=== PATIENT | female | born 1935 | race Caucasian/White ===

== ENCOUNTER → 2016-12-22 | Outpatient (CLI) | payer MEDICARE, MEDICAID ==
[~2016-12-22] MED LIST: ACHD5005 PO; ALBU0.8322 IH; AMOX500C2 PO; Aspirin PO; Atorvastatin Calcium PO; CARV25TA PO; CATHETER FLUSH 10 ML SYR IV PRN; CLAR-19 PO; CLPD75T PO; DILT120C82 PO; EXEN10PE4 SQ; GLIP5TAB13 PO; HYDR-3812 PO; HYDR25TA4 PO; IBUP-1773 PO; IOHEXOL 350 MG/ML 100 ML (OMNIPAQUE 350) VIAL IV ONE; LANS30CA PO; LISI40TA PO; LNS30CCR PO; LOVA40TA2 PO; MAGN400C PO; MAGN400T6 PO; METF-380 PO; METF1000 PO; NS 100 ML (IVPB) BAG IV ONE; PRD20T PO; TRAM50TA2 PO; VIT1TABL83 PO; WARF5TAB6 PO; WRF5T PO
[2016-12-22 08:52] LABS: CREATININE SERUM 1.2 MG/DL (0.60-1.30)
--- NOTE | 2016-12-22 09:57 | Diagnostic Imaging Report ---
PROCEDURE: CT abdomen with contrast only. TECHNIQUE: Multiple contiguous axial images were obtained through the abdomen after the administration of intravenous contrast. INDICATION: Followup renal mass. COMPARISON: 07/01/2016. FINDINGS: The lung bases demonstrate no significant abnormality. Calcified granulomas in the liver are seen with no focal lesion. The spleen, the adrenal glands and the pancreas appear unremarkable. The kidneys have symmetric enhancement and contrast excretion. There is no hydronephrosis. There is a 2.1 cm hypodense lesion along the lower pole of the right kidney. No definite contrast enhancement in it is demonstrated. The osseous structures demonstrate mild degenerative changes. Abdominal aorta is normal in caliber. No para-aortic significantly enlarged lymph nodes seen. IMPRESSION: Stable 2.1 cm hypodense lesion along the lower pole of the right kidney is probably a complicated cyst with no definite enhancing components. Ultrasound evaluation may help confirm the cystic nature. Dictated by: Dictated on workstation # [id number]
== END ==
LOC: RAD 08:21
PROVIDERS: ATTEND Nurse Practitioner Community Health
DX: N28.89 Other specified disorders of kidney and ureter (principal)
CPT/HCPCS: 36415; 74160; 82565; 84520

== ENCOUNTER 2017-03-27 13:58 | Inpatient (IN) | payer MEDICARE, MEDICAID ==
[~2017-03-27] VITALS: Ht 165.1 cm; Wt 100.3 kg
[~2017-03-27 13:58] MED LIST changes: -CATHETER FLUSH 10 ML SYR IV PRN; -IOHEXOL 350 MG/ML 100 ML (OMNIPAQUE 350) VIAL IV ONE; -NS 100 ML (IVPB) BAG IV ONE
--- NOTE | 2017-03-27 14:03 | ED Neurological Problem ---
General Stated Complaint: POSS STROKE Source: patient, EMS Exam Limitations: clinical condition History of Present Illness Time seen by provider: 14:02 Initial Comments 81-year-old white female presents with EMS with a strokelike presentation that began by best history between 1 and 2+ hours prior to presentation to the emergency department. The patient's family noted weakness in the left arm and leg leading to the patient falling sustaining blunt head trauma to the left temporal area. The patient according to the family had slurred speech. The patient is on Coumadin and aspirin. She is diabetic. Her blood pressure in the emergency department exceeded 185/110. The TPA conversation was undertaken with the patient and her children. Her son is a nurse and has DURABLE POWER OF FILTER TANK OPERATOR for the patient. Despite the fact that the patient has a number of precautions for the use of TPA she has absolutely clear that she wants to try the TPA. The patient's son and 2 daughters are in agreement. . . Allergies and Home Medications Allergies Coded Allergies: No Known Drug Allergies (Verified , 08/08/07) Home Medications Albuterol Sulfate 1 Puff Puff, 2 PUFF IH Q4H PRN for SHORTNESS OF BREATH, ( Reported) 1 PUFF = 90 MCG Aspirin 325 Mg Tablet, 650 MG PO DAILY, (Reported) Carvedilol 25 Mg Tablet, 25 MG PO BID, (Reported) Glipizide 5 Mg Tablet, 5 MG PO DAILY, (Reported) Lisinopril 40 Mg Tablet, 40 MG PO DAILY, (Reported) Metformin HCl 1,000 Mg Tablet, 1,000 MG PO BID, (Reported) Warfarin Sodium 2.5 Mg Tablet, 2.5 MG PO DAILY, (Reported) Constitutional: No chills, No fever Eyes: See HPI, Denies Blurred Vision Ears, Nose, Mouth, Throat: denies ear pain Respiratory: No cough Cardiovascular: No chest pain Gastrointestinal: No abdominal pain, No nausea Genitourinary: no symptoms reported Musculoskeletal: no symptoms reported Skin: no symptoms reported Psychiatric/Neurological: No Symptoms Reported, Weakness (left arm and leg which is new. Weakness the left face which is old from Lyme's disease.) Endocrine: No Symptoms Reported Hematologic/Lymphatic: No Symptoms Reported Past Lrycwhl-Dkeapn-Wqsitc Hx Patient Social History Recent Hopitalizations: No Immunizations Up To Date Date of Pneumonia Vaccine: Aug 10, 2012 Date of Influenza Vaccine: May 05, 2016 Surgeries Surgeries: Bladder Surgery, Coronary Stent, Gallbladder, Hysterectomy, Joint Replacement, Orthopedic Respiratory Respiratory Disorders: COPD Cardiovascular Cardiac Disorders: Atrial Fibrillation, Coronary Artery Disease Reproductive System Hx Reproductive Disorders: No Sexually Transmitted Disease: No HIV/AIDS: No Female Reproductive Disorders: Denies Genitourinary Genitourinary Disorders: Benign Prostatic Hyperpl Endocrine Endocrine Disorders: Diabetes, Non-Insulin dep Family Medical History Significant Family History: No Pertinent Family Hx Physical Exam Vital Signs Vital Sign - Last 12Hours 03/27/17 03/27/17 14:00 16:10 Temp 97.8 Pulse 85 Resp 16 B/P (MAP) 206/126 Pulse Ox 91 O2 Delivery Nasal Cannula O2 Flow Rate 2.00 Capillary Refill : General Appearance: WD/WN, no apparent distress HEENT: No PERRL/EOMI, other (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.) Neck: non-tender, supple Respiratory: lungs clear, no respiratory distress Cardiovascular: irregularly irregular Gastrointestinal: normal bowel sounds, soft Extremities: normal inspection Neurologic/Psychiatric: other (my bedside NIHSS was 8 for left upper lower extremity weakness and lateral rectus loss on the right) Progress/Results/Core Measures Results/Orders Lab Results Laboratory Tests Test 03/27/17 14:00 03/27/17 15:20 Range/Units White Blood Count 6.6 4.3-11.0 10^3/uL Red Blood Count 3.91 L 4.35-5.85 10^6/uL Hemoglobin 12.6 11.5-16.0 G/DL Hematocrit 38 35-52 % Mean Corpuscular Volume 98 80-99 FL Mean Corpuscular Hemoglobin 32 25-34 PG Mean Corpuscular Hemoglobin Concent 33 32-36 G/DL Red Cell Distribution Width 12.4 10.0-14.5 % Platelet Count 186 130-400 10^3/uL Mean Platelet Volume 11.7 H 7.4-10.4 FL Neutrophils (%) (Auto) 63 42-75 % Lymphocytes (%) (Auto) 22 12-44 % Monocytes (%) (Auto) 11 0-12 % Eosinophils (%) (Auto) 4 0-10 % Basophils (%) (Auto) 1 0-10 % Neutrophils # (Auto) 4.1 1.8-7.8 X 10^3 Lymphocytes # (Auto) 1.5 1.0-4.0 X 10^3 Monocytes # (Auto) 0.7 0.0-1.0 X 10^3 Eosinophils # (Auto) 0.2 0.0-0.3 10^3/uL Basophils # (Auto) 0.0 0.0-0.1 10^3/uL Prothrombin Time 14.7 12.2-14.7 SEC INR Comment 1.1 0.8-1.4 Activated Partial Thromboplast Time 34 24-35 SEC D-Dimer 1.60 H 0.00-0.49 UG/ML Sodium Level 137 135-145 MMOL/L Potassium Level 4.1 3.6-5.0 MMOL/L Chloride Level 104 98-107 MMOL/L Carbon Dioxide Level 22 21-32 MMOL/L Anion Gap 11 5-14 MMOL/L Blood Urea Nitrogen 12 7-18 MG/DL Creatinine 1.03 0.60-1.30 MG/DL Estimat Glomerular Filtration Rate 51 BUN/Creatinine Ratio 12 Glucose Level 208 H 70-105 MG/DL Calcium Level 8.5 8.5-10.1 MG/DL Total Bilirubin 0.6 0.1-1.0 MG/DL Aspartate Amino Transf (AST/SGOT) 16 5-34 U/L Alanine Aminotransferase (ALT/SGPT) 12 0-55 U/L Alkaline Phosphatase 62 40-136 U/L Troponin I < 0.30 <0.30 NG/ML Total Protein 6.8 6.4-8.2 GM/DL Albumin 3.4 3.2-4.5 GM/DL Urine Color YELLOW Urine Clarity CLEAR Urine pH 7 5-9 Urine Specific Foreman 1.010 L 1.016-1.022 Urine Protein 2+ H NEGATIVE Urine Glucose (UA) 1+ H NEGATIVE Urine Ketones NEGATIVE NEGATIVE Urine Nitrite NEGATIVE NEGATIVE Urine Bilirubin NEGATIVE NEGATIVE Urine Urobilinogen NORMAL NORMAL MG/DL Urine Leukocyte Esterase NEGATIVE NEGATIVE Urine RBC (Auto) NEGATIVE NEGATIVE Urine RBC NONE /HPF Urine WBC NONE /HPF Urine Squamous Epithelial Cells RARE /HPF Urine Crystals NONE /LPF Urine Bacteria NONE /HPF Urine Casts NONE /LPF Urine Mucus NEGATIVE /LPF Urine Culture Indicated NO My Orders Orders - NILSON HYDE MD Cbc With Automated Diff (03/27/17 13:58) Protime With Inr (03/27/17 13:58) Partial Thromboplastin Time (03/27/17 13:58) Comprehensive Metabolic Panel (03/27/17 13:58) Fibrin Degradation Products (03/27/17 13:58) Troponin I (03/27/17 13:58) Ua Culture If Indicated (03/27/17 13:58) Chest 1 View, Ap/Pa Only (03/27/17 13:58) Catheter(Urinary) Insert & Ass 03,15 (03/27/17 13:58) Ekg Tracing (03/27/17 13:58) Nothing By Mouth (03/27/17 Dinner) Accucheck Stat ONCE (03/27/17 13:58) Saline Lock/Iv-Start (03/27/17 13:58) Saline Lock/Iv-Start (03/27/17 13:58) Vital Signs - Stroke Q15M (03/27/17 13:58) Ct Head Wo-R/O Stroke (03/27/17 13:58) O2 (03/27/17 13:58) Intake & Output 06,14,22 (03/27/17 13:58) Monitor-Rhythm Ecg Trace Only (03/27/17 13:58) Dysphagia Screening Tool (03/27/17 13:58) Post Thrombolytic Adminstratio (03/27/17 13:58) Accucheck Stat ONCE (03/27/17 14:51) Saline Lock/Iv-Start (03/27/17 14:51) Saline Lock/Iv-Start (03/27/17 14:51) Vital Signs - Stroke Q15M (03/27/17 14:51) O2 (03/27/17 14:51) Intake & Output 06,14,22 (03/27/17 14:51) Dysphagia Screening Tool (03/27/17 14:51) Post Thrombolytic Adminstratio (03/27/17 14:51) Labetalol Injection (Normodyne Injection (03/27/17 15:15) Labetalol Injection (Normodyne Injection (03/27/17 15:09) Labetalol Injection (Normodyne Injection (03/27/17 15:30) Iohexol Injection (Omnipaque 350 Mg/Ml 1 (03/27/17 15:45) Ns (Ivpb) (Sodium Chloride 0.9% Ivpb Bag (03/27/17 15:45) Pharmacy Communication (Pharmacy Communi (03/27/17 15:35) Vital Signs - Stroke Q15M (03/27/17 15:39) Dysphagia Screening Tool (03/27/17 15:39) Alteplase (Activase) (Activase Injection (03/27/17 15:39) Post Thrombolytic Adminstratio (03/27/17 15:39) Ns (Ivpb) (Sodium C... W/Nicardipine Iv (03/27/17 15:45) Alteplase (Activase) (Activase Injection (03/27/17 15:37) Fentanyl Injection (Sublimaze Injection (03/27/17 17:00) Ct Angio Head W (03/27/17 14:51) Ondansetron Injection (Zofran Injectio (03/27/17 17:14) Ondansetron Injection (Zofran Injectio (03/27/17 17:30) Hydromorphone Injection (Dilaudid Inject (03/27/17 18:15) Medications Given in ED Current Medications Medications Dose Ordered Sig/Sacha Route Start Time Stop Time Status Last Admin Dose Admin Alteplase, Recombinant 100 mg STK-MED ONCE IV 03/27/17 15:37 03/27/17 15:44 DC 03/27/17 16:26 87.6 MG Fentanyl Citrate 100 mcg ONCE PRN IVP 03/27/17 17:00 03/27/17 16:59 100 MCG Iohexol 100 ml ONCE ONCE IV 03/27/17 15:45 03/27/17 15:46 DC 03/27/17 17:28 85 ML Labetalol HCl 5 mg ONCE ONCE IV 03/27/17 15:15 03/27/17 15:16 DC 03/27/17 15:20 5 MG Labetalol HCl 5 mg ONCE ONCE IV 03/27/17 15:30 03/27/17 15:31 DC 03/27/17 15:32 5 MG Ondansetron HCl 4 mg ONCE ONCE IVP 03/27/17 17:30 03/27/17 17:31 DC 03/27/17 17:20 4 MG Sodium Chloride 100 ml ONCE ONCE IV 03/27/17 15:45 03/27/17 15:46 DC 03/27/17 17:28 80 ML Vital Signs/I&O Vital Sign - Last 12Hours 03/27/17 03/27/17 14:00 16:10 Temp 97.8 Pulse 85 Resp 16 B/P (MAP) 206/126 Pulse Ox 91 O2 Delivery Nasal Cannula O2 Flow Rate 2.00 Progress Note : Time: 15:14 Progress Note 3:15 Very candid conversation with the patient and her children including her son who has her DURABLE POWER OF FILTER TANK OPERATOR was undertaken. It was still clear they wished to proceed with TPA despite the significant precautions for the use of TPA After telephone consultation with neurologist at , Dr. Iyer, who concurred that the patient was a candidate for TPA the patient's blood pressure which was approximately 210/115 was treated with 5 mg labetalol IV. It took approximately 45 minutes to achieve an adequate reduction in the patient 's blood pressure. The labetalol which was given twice was unsuccessful and the patient ultimately required a Cardene drip. Abdomen patient's blood pressure was below 185/110 the TPA was administered. Patient had a CTA of the head performed which revealed evidence of significant clotting of the large vessels of the brain. CT of the cervical spine is pending as the patient had fallen and struck her face as the presenting complaint. I informed Dr. Iyer of the patient's negative CTA. She felt the patient could stay here at [facility] for further care. This met the family's desire. Dr. Forrest was kind enough to accept the patient. Orders were written which included a DO NOT RESUSCITATE order per the family's request. Patient was transferred to the floor. Departure Communication (Admissions) Time/Spoke to Admitting Phy: 18:[address] Forrest and Jaylon ( neurologist). 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 Referrals: JIMENEZ GIL DO (PCP) Primary Care Physician JAZMINE BROWN (Family) Primary Care Physician NILSON HYDE MD Mar 27, 2017 14:02
--- OUTSIDE RECORDS SUMMARY | 2017-03-27 14:20 | XMS REPORT ---
Author Author JAZMINE BROWN [facility] eClinicalWorks Address Unknown Phone Unavailable Care Team Providers Care Cherry Sorter Name Role Phone JAZMINE BROWN CP Unavailable Allergies, Adverse Reactions, Alerts Substance Reaction Event Type Mobic hurt in chest, unsure of made ulcer act up. Drug Allergy Lovastatin 40 Mg Tablet Info Not Available Non Drug Allergy Problems Problem Type Condition ICD-9 Code Onset Dates Condition Status Problem Unspecified essential hypertension 401.9 Active Problem Sacroiliitis, not elsewhere classified 720.2 Active Problem Unspecified anemia 285.9 Active Problem Other malaise and fatigue 780.79 Active Problem Other and unspecified hyperlipidemia 272.4 Active Problem Diabetes 250.00 Active Problem Hemorrhage of gastrointestinal tract, unspecified 578.9 Active Problem Atrial fibrillation 427.31 Active Problem Lumbago 724.2 Active Problem Helicobacter pylori (H. pylori) infection 041.86 Active Assessment High risk medication use V58.69 Active Assessment Diabetes 250.00 Active Assessment Lumbago 724.2 Active Medications Medication Code System Code Instructions Start Date End Date Status Dosage Hydrochlorothiazide [facility] [address]-79 25 mg Apr 05, 2013 take 1 tablet by Oral route 1 time per day Carvedilol [facility] 20511542478 25 MG TAKE ONE TABLET BY MOUTH TWICE DAILY Coumadin [facility] [address]-75 2.5 mg Jun 20, 2014 1 tablet by Oral route 1 time per day Lisinopril [facility] [address]-15 40 MG TAKE ONE TABLET BY MOUTH DAILY GlipiZIDE [facility] [address]-92 5 MG TAKE ONE TABLET BY MOUTH EVERY MORNING Tramadol HCl [facility] [address]-74 50 MG Orally 2 times a day RX TO BE FILLED EARLY D/T HOLIDAY November 19, 2014 1 tablet as needed Metformin HCl [facility] 31121578290 1000 MG TAKE ONE TABLET BY MOUTH TWICE DAILY Procedures Procedure Coding System Code Date GLYCATED HEMOGLOBIN TEST CPT-4 98769 Mar 18, 2015 LAB NOT BILLED BY [facility] CPT-4 NOBLL Mar 18, 2015 No Charge CPT-4 17404 Mar 18, 2015 FQ VISIT ESTABLISHED PATIENT CPT-4 G0467 Mar 18, 2015 VENIPUNCT, ROUTINE* CPT-4 53157 Mar 18, 2015 Office Visit, Est Pt., Level 3 CPT-4 45124 Mar 18, 2015 Vital Signs Date/Time: Mar 18, 2015 Temperature 98.1 F Weight 226.9 lbs Height 64 in BMI 38.94 Index Blood Pressure Diastolic 95 mmHg Blood Pressure Systolic 170 mmHg Cardiac Monitoring Heart Rate 96 bpm Results Name Result Date Reference Range Unit Abnormality Flag A1C (IN HOUSE) Summary Purpose eClinicalWorks Submission
--- OUTSIDE RECORDS SUMMARY | 2017-03-27 14:20 | XMS REPORT ---
Author Author JAZMINE BROWN Organization e[employer] Address Unknown Phone Unavailable Care Team Providers Care Clamp Remover Name Role Phone JAZMINE BROWN CP Unavailable Allergies No Known Allergies Problems Problem Type Condition Code Onset Dates Condition Status Problem Unspecified [...] Helicobacter pylori (H. pylori) infection 041.86 Active Medications Medication Code System Code Instructions Start Date End Date Status Dosage Tramadol HCl [facility] [address]-80 50 MG Orally 2 times a day RX to be filled on 05/06/15 November 19, 2014 1 tablet as needed Results No Known Results Summary Purpose eClinicalWorks Submission
--- OUTSIDE RECORDS SUMMARY | 2017-03-27 14:20 | XMS REPORT ---
Author Author JAZMINE BROWN [facility] eClinicalWorks Address Unknown Phone Unavailable Care Team Providers Care Skid Road Worker Name Role Phone JAZMINE BROWN CP Unavailable Allergies, Adverse Reactions, Alerts Substance Reaction Event Type Mobic hurt in chest, unsure of made ulcer act up. Drug Allergy Lovastatin 40 Mg Tablet Info Not Available Non Drug Allergy Problems Problem Type Condition Code Onset Dates Condition Status Problem Unspecified anemia 285.9 Active Problem Atrial fibrillation 427.31 Active Problem Sacroiliitis, not elsewhere classified 720.2 Active Problem Diabetes 250.00 Active Problem Other malaise and fatigue 780.79 Active Problem Uncomplicated asthma, unspecified asthma severity J45.909 Active Problem Helicobacter pylori (H. pylori) infection 041.86 Active Problem Hemorrhage of gastrointestinal tract, unspecified 578.9 Active Problem Other and unspecified hyperlipidemia 272.4 Active Problem Lumbago 724.2 Active Assessment Encounter for current long-term use of anticoagulants Z79.01 Active Assessment Low back pain M54.5 Active Assessment Diabetes E11.9 Active Problem Unspecified essential hypertension 401.9 Active Medications Medication Code System Code Instructions Start Date End Date Status Dosage Carvedilol [facility] [address]-92 25 MG Orally 2 times a day 1 tablet Coumadin [facility] [address]-47 2.5 MG Orally Once a day Jun 20, 2014 1 tablet Hydrochlorothiazide [facility] [address]-47 25 MG Orally Once a day Apr 05, 2013 1 tablet Tylenol Extra Strength [facility] [address]-90 500 MG Orally every 6 hrs 1 tablet as needed Lisinopril [facility] [address]-07 40 MG Orally Once a day 1 tablet Ventolin HFA [facility] [address]-07 108 (90 Base) MCG/ACT Inhalation every 4 hrs September 17, 2015 2 puffs as needed Tramadol HCl [facility] [address]-17 50 mg Orally 2 times a day November 19, 2014 2 tablet as needed GlipiZIDE [facility] [address]-67 5 MG Orally Once a day November 06, 2015 1 tablet in the morning Metformin HCl [facility] [address]-29 1000 MG Orally 2 times a day 1 tablet Procedures Procedure Coding System Code Date MICROALBUMIN, SEMIQUANT CPT-4 67343 January 30, 2016 [facility] VISIT ESTABLISHED PATIENT CPT-4 G0467 January 30, 2016 GLYCATED HEMOGLOBIN TEST CPT-4 44835 January 30, 2016 PROTHROMBIN TIME CPT-4 79853 January 30, 2016 Office Visit, Est Pt., Level 3 CPT-4 83202 January 30, 2016 Vital Signs Date/Time: January 30, 2016 Cardiac Monitoring Heart Rate 84 bpm Weight 210.6 lbs Height 64 in BMI 36.15 Index Blood Pressure Diastolic 98 mmHg Blood Pressure Systolic 154 mmHg Results No Known Results Summary Purpose eClinicalWorks Submission
--- OUTSIDE RECORDS SUMMARY | 2017-03-27 14:21 | XMS REPORT ---
Author Author JAZMINE BROWN Organization eClinicalWorks Address Unknown Phone Unavailable Care Team Providers Care House Fellow Name Role Phone JAZMINE BROWN CP Unavailable Allergies No Known Allergies Problems Problem Type Condition ICD-9 Code Onset Dates Condition Status Problem Diabetes mellitus without mention of complication, type II or unspecified type, not stated as uncontrolled 250.00 Active Problem Unspecified anemia 285.9 Active Problem Unspecified essential hypertension 401.9 Active Assessment Atrial fibrillation 427.31 Active Problem Other and unspecified hyperlipidemia 272.4 Active Problem Lumbago 724.2 Active Problem Other malaise and fatigue 780.79 Active Problem Atrial fibrillation 427.31 Active Problem Sacroiliitis, not elsewhere classified 720.2 Active Problem Helicobacter pylori (H. pylori) infection 041.86 Active Problem Hemorrhage of gastrointestinal tract, unspecified 578.9 Active Medications No Known Medications Procedures Procedure Coding System Code Date PROTHROMBIN TIME CPT-4 51382 Mar 15, 2015 Results No Known Results Summary Purpose eClinicalWorks Submission
--- OUTSIDE RECORDS SUMMARY | 2017-03-27 14:21 | XMS REPORT ---
Author Author JAZMINE BROWN [facility] Address [address] [place] [address] Care Team Providers Care Pc Technician Name Role Phone JAZMINE BROWN Unavailable PROBLEMS Type Condition ICD9-CM Code [id number] Code Onset Dates Condition Status SNOMED Code Problem Renal mass, right N28.89 Active 872484704 Problem Sciatica of left side M54.32 Active 18325880 Problem Low back pain M54.5 Active 049256674 Problem Uncomplicated asthma, unspecified asthma severity J45.909 Active 788176489 Problem Encounter for current long-term use of anticoagulants Z79.01 Active 315944310 Problem Diabetes E11.9 Active 388508742 ALLERGIES No Known Allergies SOCIAL HISTORY No smoking Hx information available PLAN OF CARE VITAL SIGNS MEDICATIONS No Known Medications RESULTS Name Result Date Reference Range CT Scan : Kidneys 2016-12-22 PROCEDURES No Known procedures IMMUNIZATIONS No Known Immunizations
--- OUTSIDE RECORDS SUMMARY | 2017-03-27 14:21 | XMS REPORT ---
Author CARLOS Ward eClinicalWorks Address Unknown Phone Unavailable Care Team Providers Care Director Of Premium Seat Sales Name Role Phone CARLOS PEREIRA CP Unavailable Allergies, Adverse Reactions, Alerts Substance Reaction Event Type Mobic hurt in chest, unsure of made ulcer act up. Drug Allergy Lovastatin 40 Mg Tablet Info Not Available Non Drug Allergy Problems Problem Type Condition Code Onset Dates Condition Status Problem Unspecified essential hypertension 401.9 Active Problem Sacroiliitis, not elsewhere classified 720.2 Active Problem Unspecified anemia 285.9 Active Assessment Pain of right thigh M79.651 Active Assessment Pain in right hip M25.551 Active Problem Other malaise and fatigue 780.79 Active Problem Other and unspecified hyperlipidemia 272.4 Active Problem Diabetes 250.00 Active Problem Hemorrhage of gastrointestinal tract, unspecified 578.9 Active Problem Atrial fibrillation 427.31 Active Problem Lumbago 724.2 Active Problem Helicobacter pylori (H. pylori) infection 041.86 Active Medications Medication Code System Code Instructions Start Date End Date Status Dosage Coumadin [facility] [address]-60 2.5 mg Jun 20, 2014 1 tablet by Oral route 1 time per day Tramadol HCl [facility] [address]-43 50 MG Orally 2 times a day RX to be filled on 05/06/15 November 19, 2014 1 tablet as needed GlipiZIDE [facility] [address]-69 5 MG TAKE ONE TABLET BY MOUTH EVERY MORNING Metformin HCl [facility] 04854369685 1000 MG TAKE ONE TABLET BY MOUTH TWICE DAILY Carvedilol [facility] 21738811512 25 MG TAKE ONE TABLET BY MOUTH TWICE DAILY Hydrochlorothiazide [facility] [address]-14 25 mg Apr 05, 2013 take 1 tablet by Oral route 1 time per day Lisinopril [facility] 67335858004 40 MG TAKE ONE TABLET BY MOUTH DAILY Procedures Procedure Coding System Code Date [facility] VISIT ESTABLISHED PATIENT CPT-4 G0467 May 08, 2015 Office Visit, Est Pt., Level 3 CPT-4 45832 May 08, 2015 X-RAY EXAM OF HIP CPT-4 54044 May 08, 2015 Vital Signs Date/Time: May 08, 2015 Temperature 97.6 F Weight 229 lbs Height 64 in BMI 39.30 Index Blood Pressure Diastolic 92 mmHg Blood Pressure Systolic 152 mmHg Cardiac Monitoring Heart Rate 70 bpm Results No Known Results Summary Purpose eClinicalWorks Submission
--- OUTSIDE RECORDS SUMMARY | 2017-03-27 14:21 | XMS REPORT ---
Author Author JAZMINE BROWN [facility] Address [address] [place] [address] Care Team Providers Care Dermatology Nurse Practitioner Name Role Phone JAZMINE BROWN Unavailable PROBLEMS Type Condition ICD9-CM Code [id number] Code Onset Dates Condition Status SNOMED Code Problem Renal mass, right N28.89 Active 904537182 Problem Sciatica of left side M54.32 Active 06466090 Problem Low back pain M54.5 Active 469133955 Problem Uncomplicated asthma, unspecified asthma severity J45.909 Active 744812369 Problem Diabetes E11.9 Active 460014550 Problem Encounter for current long-term use of anticoagulants Z79.01 Active 960383054 ALLERGIES Unknown Allergies SOCIAL HISTORY No smoking Hx information available PLAN OF CARE VITAL SIGNS MEDICATIONS Medication Instructions Dosage Frequency Start Date End Date Duration Status Hydrocodone-Acetaminophen 7.5-325 MG Orally 2 times a day 1 tablet as needed 12h 12 Jul, 2016 28 days Active RESULTS No Results PROCEDURES No Known procedures IMMUNIZATIONS No Known Immunizations
--- OUTSIDE RECORDS SUMMARY | 2017-03-27 14:21 | XMS REPORT ---
Author Author JAZMINE BROWN [facility] Address [address] [place] [address] Care Team Providers Care Lung Gun Operator Name Role Phone JAZMINE BROWN Unavailable PROBLEMS Type Condition ICD9-CM Code [id number] Code Onset Dates Condition Status SNOMED Code Problem Atrial fibrillation 427.31 Active 98061586 Problem Helicobacter pylori (H. pylori) infection 041.86 Active 41041617 Problem Hemorrhage of gastrointestinal tract, unspecified 578.9 Active 71711459 Problem Unspecified essential hypertension 401.9 Active 38120900 Problem Unspecified anemia 285.9 Active 579711661 Problem Sacroiliitis, not elsewhere classified 720.2 Active 871334451 Problem Low back pain M54.5 Active 539478576 Problem Uncomplicated asthma, unspecified asthma severity J45.909 Active 445249201 Problem Other and unspecified hyperlipidemia 272.4 Active 28701223 Problem Lumbago 724.2 Active 437348776 Problem Diabetes 250.00 Active 03815790 Problem Other malaise and fatigue 780.79 Active 116620819 ALLERGIES Unknown Allergies SOCIAL HISTORY No smoking Hx information available PLAN OF CARE VITAL SIGNS MEDICATIONS Medication Instructions Dosage Frequency Start Date End Date Duration Status Tramadol HCl 50 mg Orally 2 times a day 2 tablet as needed 12h 18 Nov, 2014 28 days Active RESULTS No Results PROCEDURES No Known procedures IMMUNIZATIONS No Known Immunizations
--- OUTSIDE RECORDS SUMMARY | 2017-03-27 14:21 | XMS REPORT ---
Author Author JAZMINE BROWN [facility] Address [address] [place] [address] Care Team Providers Care Counsellors Name Role Phone JAZMINE BROWN Unavailable PROBLEMS Type Condition ICD9-CM Code [id number] Code Onset Dates Condition Status SNOMED Code Problem Renal mass, right N28.89 Active 140236637 Problem Sciatica of left side M54.32 Active 82383664 Problem Low back pain M54.5 Active 274794167 Problem Uncomplicated asthma, unspecified asthma severity J45.909 Active 829441894 Problem Diabetes E11.9 Active 320601689 Problem Encounter for current long-term use of anticoagulants Z79.01 Active 560936111 ALLERGIES No Known Allergies SOCIAL HISTORY No smoking Hx information available PLAN OF CARE VITAL SIGNS MEDICATIONS No Known Medications RESULTS No Results PROCEDURES No Known procedures IMMUNIZATIONS No Known Immunizations
--- OUTSIDE RECORDS SUMMARY | 2017-03-27 14:21 | XMS REPORT ---
Author Author JAZMINE BROWN [facility] eClinicalWorks Address Unknown Phone Unavailable Care Team Providers Care Merchandise Presentation Associate Name Role Phone JAZMINE BROWN CP Unavailable Allergies, Adverse Reactions, Alerts Substance Reaction Event Type Mobic hurt in chest, unsure of made ulcer act up. Drug Allergy Lovastatin 40 Mg Tablet Info Not Available Non Drug Allergy Problems Problem Type Condition Code Onset Dates Condition Status Problem Unspecified anemia 285.9 Active Problem Atrial fibrillation 427.31 Active Problem Sacroiliitis, not elsewhere classified 720.2 Active Assessment Osteoarthritis M19.90 Active Problem Unspecified essential hypertension 401.9 Active Problem Diabetes 250.00 Active Problem Other malaise and fatigue 780.79 Active Problem Uncomplicated asthma, unspecified asthma severity J45.909 Active Problem Helicobacter pylori (H. pylori) infection 041.86 Active Problem Hemorrhage of gastrointestinal tract, unspecified 578.9 Active Problem Other and unspecified hyperlipidemia 272.4 Active Problem Lumbago 724.2 Active Medications Medication Code System Code Instructions Start Date End Date Status Dosage Tramadol HCl [facility] [address]-88 50 mg Orally 2 times a day November 19, 2014 2 tablet as needed Hydrochlorothiazide [facility] [address]-27 25 MG Orally Once a day Apr 05, 2013 1 tablet Ventolin HFA [facility] [address]-26 108 (90 Base) MCG/ACT Inhalation every 4 hrs September 17, 2015 2 puffs as needed GlipiZIDE [facility] [address]-88 5 MG Orally Once a day 1 tablet in the morning Carvedilol [facility] [address]-70 25 MG Orally 2 times a day 1 tablet Coumadin [facility] [address]-48 2.5 MG Orally Once a day Jun 20, 2014 1 tablet Lisinopril [facility] [address]-85 40 MG Orally Once a day 1 tablet Metformin HCl [facility] [address]-05 1000 MG Orally 2 times a day 1 tablet Procedures Procedure Coding System Code Date Office Visit, Est Pt., Level 3 CPT-4 13662 October 16, 2015 [facility] VISIT ESTABLISHED PATIENT CPT-4 G0467 October 16, 2015 Vital Signs Date/Time: October 16, 2015 Temperature 96.9 F Weight 214.0 lbs Height 64 in BMI 36.73 Index Blood Pressure Diastolic 82 mmHg Blood Pressure Systolic 122 mmHg Cardiac Monitoring Heart Rate 92 bpm Results No Known Results Summary Purpose eClinicalWorks Submission
--- OUTSIDE RECORDS SUMMARY | 2017-03-27 14:22 | XMS REPORT ---
Author Author JAZMINE BROWN Organization eClinicalWorks Address Unknown Phone Unavailable Care Team Providers Care Authorization Representative Name Role Phone JAZMINE BROWN CP Unavailable [...] End Date Status Dosage Tramadol HCl [facility] [address]-75 50 MG Orally 2 times a day Rx to be filled November 19, 2014 2 tablet as needed Results No Known Results Summary Purpose eClinicalWorks Submission
--- OUTSIDE RECORDS SUMMARY | 2017-03-27 14:22 | XMS REPORT ---
Author Author JAZMINE BROWN [facility] Address [address] [place] [address] Care Team Providers Care Solid Waste Facility Operator Name Role Phone JAZMINE BROWN Unavailable PROBLEMS Type Condition ICD9-CM Code [id number] Code Onset Dates Condition Status SNOMED Code Problem Renal mass, right N28.89 Active 172842458 Problem Sciatica of left side M54.32 Active 30513330 Problem Low back pain M54.5 Active 947015236 Problem Uncomplicated asthma, unspecified asthma severity J45.909 Active 724495180 Problem Diabetes E11.9 Active 975693190 Problem Encounter for current long-term use of anticoagulants Z79.01 Active 138920782 ALLERGIES Substance Reaction Event Type Date Status Mobic hurt in chest, unsure of made ulcer act up. Drug Allergy Jul, Active Lovastatin 40 Mg Tablet Unknown Non Drug Allergy Jul, Active SOCIAL HISTORY No smoking Hx information available PLAN OF CARE Activity Details Follow Up prn Reason: VITAL SIGNS Height 64 in 2016-07-08 Weight 210.9 lbs 2016-07-08 Temperature 98.4 degrees Fahrenheit 2016-07-08 Heart Rate 72 bpm 2016-07-08 Respiratory Rate 18 2016-07-08 BMI 36.20 kg/m2 2016-07-08 Blood pressure systolic 140 mmHg 2016-07-08 Blood pressure diastolic 82 mmHg 2016-07-08 MEDICATIONS Medication Instructions Dosage Frequency Start Date End Date Duration Status Tylenol Extra Strength 500 MG Orally every 6 hrs 1 tablet as needed 6h Active Metformin HCl 1000 MG TAKE ONE TABLET BY MOUTH TWICE DAILY 30 Active [place] 10 mcg/0.04 mL 10 mcg by Subcutaneous route 2 times per day Jul, Active Hydrochlorothiazide 25 MG Orally Once a day 1 tablet 24h Apr, Active Coumadin 2.5 MG Orally Once a day 1 tablet 24h Jun, Active GlipiZIDE 5 MG TAKE ONE TABLET BY MOUTH IN THE MORNING Jun, 30 Active Lisinopril 40 MG TAKE ONE TABLET BY MOUTH ONCE DAILY 30 Active Carvedilol 25 MG TAKE ONE TABLET BY MOUTH TWICE DAILY 30 Active Carvedilol 25 MG TAKE ONE TABLET BY MOUTH TWICE DAILY 30 Active Carvedilol 25 MG TAKE ONE TABLET BY MOUTH TWICE DAILY 30 Active Lisinopril 40 MG TAKE ONE TABLET BY MOUTH ONCE DAILY 30 Active Metformin HCl 1000 MG Orally 2 times a day 1 tablet 12h 30 Active Lisinopril 40 MG Orally Once a day 1 tablet 24h Active Carvedilol 25 MG TAKE ONE TABLET BY MOUTH TWICE DAILY 30 Active Ventolin HFA 108 (90 Base) MCG/ACT Inhalation every 4 hrs 2 puffs as needed 4h Sep, Active PredniSONE 20 mg Orally Once a day 1 tablet 24h Jul, Jul, 05 days Active Lisinopril 40 MG TAKE ONE TABLET BY MOUTH DAILY 30 Active Lisinopril 40 MG TAKE ONE TABLET BY MOUTH DAILY 30 Active Hydrocodone-Acetaminophen 10-325 MG Orally every 4-6 hours as needed 1 tablet as needed Jul, Jul, 05 days Active Carvedilol 25 MG Orally 2 times a day 1 tablet 12h 30 Active RESULTS No Results PROCEDURES Procedure Date Ordered Related Diagnosis Body Site TRIGGER POINT INJ/1-2 MUS 2016-07-08 N/A [facility] VISIT ESTABLISHED PATIENT Jul 08, 2016 INJECT TRIGGER POINT, 1 OR 2 Jul 08, 2016 Office Visit, Est Pt., Level 3 Jul 08, 2016 IMMUNIZATIONS No Known Immunizations
--- OUTSIDE RECORDS SUMMARY | 2017-03-27 14:22 | XMS REPORT ---
Author Author JAZMINE BROWN [facility] eClinicalWorks Address Unknown Phone Unavailable Care Team Providers Care Bacon Skinner Name Role Phone JAZMINE BROWN CP Unavailable [...] pylori (H. pylori) infection 041.86 Active Assessment Primary osteoarthritis of right knee M17.11 Active Assessment Encounter for immunization Z23 Active Assessment Diabetes E11.9 Active Medications Medication Code System Code Instructions Start Date End Date Status Dosage Coumadin [facility] [address]-59 2.5 mg Jun 20, 2014 1 tablet by Oral route 1 time per day Lisinopril [facility] 17812153381 40 MG TAKE ONE TABLET BY MOUTH DAILY Tramadol HCl [facility] [address]-83 50 MG Orally 2 times a day November 19, 2014 1 tablet as needed Carvedilol [facility] 96877770421 25 MG TAKE ONE TABLET BY MOUTH TWICE DAILY Hydrochlorothiazide [facility] [address]-86 25 mg Apr 05, 2013 take 1 tablet by Oral route 1 time per day Metformin HCl [facility] 10622254994 1000 MG TAKE ONE TABLET BY MOUTH TWICE DAILY GlipiZIDE [facility] [address]-78 5 MG TAKE ONE TABLET BY MOUTH EVERY MORNING Procedures Procedure Coding System Code Date MICROALBUMIN, SEMIQUANT CPT-4 36024 Jun 18, 2015 [facility] VISIT ESTABLISHED PATIENT CPT-4 G0467 Jun 18, 2015 GLYCATED HEMOGLOBIN TEST CPT-4 48032 Jun 18, 2015 Office Visit, Est Pt., Level 3 CPT-4 94102 Jun 18, 2015 Vital Signs Date/Time: Jun 18, 2015 Temperature 97.9 F Weight 218.4 lbs Height 64 in BMI 37.48 Index Blood Pressure Diastolic 86 mmHg Blood Pressure Systolic 146 mmHg Cardiac Monitoring Heart Rate 68 bpm Results No Known Results Summary Purpose eClinicalWorks Submission
--- OUTSIDE RECORDS SUMMARY | 2017-03-27 14:22 | XMS REPORT ---
Author Author JAZMINE BROWN [facility] Address [address] [place] [address] Care Team Providers Care Tentering Machine Off Bearer Name Role Phone JAZMINE BROWN Unavailable PROBLEMS Type Condition ICD9-CM Code BAT34-SX Code Onset Dates Condition Status SNOMED Code Problem Renal mass, right N28.89 Active 278290545 Problem Sciatica of left side M54.32 Active 22513517 Problem Low back pain M54.5 Active 407917769 Problem Uncomplicated asthma, unspecified asthma severity J45.909 Active 951973952 Problem Encounter for current long-term use of anticoagulants Z79.01 Active 918941729 Problem Diabetes E11.9 Active 420031750 ALLERGIES Substance Reaction Event Type Date Status [place] hurt in chest, unsure of made ulcer act up. Drug Allergy Jun, Active Lovastatin 40 Mg Tablet Unknown Non Drug Allergy Jun, Active SOCIAL HISTORY No smoking Hx information available PLAN OF CARE Activity Details Follow Up 4 Months Reason:DM VITAL SIGNS Height 64 in 2016-06-25 Weight 211.2 lbs 2016-06-25 Temperature 97.6 degrees Fahrenheit 2016-06-25 Heart Rate 96 bpm 2016-06-25 Respiratory Rate 18 2016-06-25 BMI 36.25 kg/m2 2016-06-25 Blood pressure systolic 150 mmHg 2016-06-25 Blood pressure diastolic 100 mmHg 2016-06-25 MEDICATIONS Medication Instructions Dosage Frequency Start Date End Date Duration Status Coumadin 2.5 MG Orally Once a day 1 tablet 24h Jun, Active Tylenol Extra Strength 500 MG Orally every 6 hrs 1 tablet as needed 6h Active Ventolin HFA 108 (90 Base) MCG/ACT Inhalation every 4 hrs 2 puffs as needed 4h Sep, Active Metformin HCl 1000 MG Orally 2 times a day 1 tablet 12h 30 Active Hydrochlorothiazide 25 MG Orally Once a day 1 tablet 24h Apr, Active Hydrocodone-Acetaminophen 7.5-325 MG Orally 2 times a day 1 tablet as needed 12h 22 Jun, 2016 Active Lisinopril 40 MG TAKE ONE TABLET BY MOUTH ONCE DAILY 30 Active GlipiZIDE 5 MG TAKE ONE TABLET BY MOUTH IN THE MORNING Jun, 30 Active Carvedilol 25 MG TAKE ONE TABLET BY MOUTH TWICE DAILY 30 Active RESULTS Name Result Date Reference Range A1C (IN HOUSE) 2016-06-25 A1C IN HOUSE 7.3 4.3 - 5.6 % Previous A1c 6.8 Lot [id number] Exp date 03/2018 LIPID PANEL 2016-06-25 Cholesterol, Total 175 100-199 Triglycerides 164 0-149 HDL Cholesterol 33 >39 VLDL Cholesterol Marques 33 5-40 LDL Cholesterol Calc 109 0-99 Comment: CMP 2016-06-25 Glucose, Serum 141 65-99 BUN 17 8-27 Creatinine, Serum 1.01 0.57-1.00 eGFR If NonAfricn Am 52 >59 eGFR If Africn Am 60 >59 BUN/Creatinine Ratio 17 11-26 Sodium, Serum 140 134-144 Potassium, Serum 4.7 3.5-5.2 Chloride, Serum 96 96-106 Carbon Dioxide, Total 28 18-29 Calcium, Serum 9.8 8.7-10.3 Protein, Total, Serum 7.2 6.0-8.5 Albumin, Serum 4.0 3.5-4.7 Globulin, Total 3.2 1.5-4.5 A/G Ratio 1.3 1.1-2.5 Bilirubin, Total 0.5 0.0-1.2 Alkaline Phosphatase, S 64 39-117 AST (SGOT) 11 0-40 ALT (SGPT) 7 0-32 PROCEDURES Procedure Date Ordered Related Diagnosis Body Site [facility] Jun 25, 2016 GLYCATED HEMOGLOBIN TEST Jun 25, 2016 SINGLE IMMUNIZATION ADMIN Jun 25, 2016 FLUZONE HIGH DOSE 65 AND UP 2015Jun 25, 2016 IMMUNIZATION ADMIN, EACH ADD (please include units) Jun 25, 2016 [facility] VISIT ESTABLISHED PATIENT Jun 25, 2016 VENIPUNCT, ROUTINE* Jun 25, 2016 PCV 13 Jun 25, 2016 Office Visit, Est Pt., Level 3 Jun 25, 2016 IMMUNIZATIONS Vaccine Route Administration Date Status PCV 13 IM Intramuscular Jun 25, 2016 Administered FLUZONE HIGH DOSE 65 AND UP 2015 IM Intramuscular Jun 25, 2016 Administered
--- OUTSIDE RECORDS SUMMARY | 2017-03-27 14:22 | XMS REPORT ---
Author Author JAZMINE BROWN Organization eClinicalWorks Address Unknown Phone Unavailable Care Team Providers Care Meat Team Member Name Role Phone JAZIMNE BROWN CP Unavailable Allergies No Known Allergies [...] Instructions Start Date End Date Status Dosage Lisinopril [facility] [address]-03 40 MG TAKE ONE TABLET BY MOUTH DAILY Results No Known Results Summary Purpose eClinicalWorks Submission
--- OUTSIDE RECORDS SUMMARY | 2017-03-27 14:22 | XMS REPORT ---
Author Author JAZMINE BROWN Organization eClinicalWorks Address Unknown Phone Unavailable Care Team Providers Care Electronics Test Engineer Name Role Phone JAZMINE BROWN CP Unavailable Allergies No Known Allergies Problems Problem Type Condition Code Onset Dates Condition Status Problem Unspecified anemia 285.9 Active Problem Atrial fibrillation 427.31 Active Problem Sacroiliitis, not elsewhere classified 720.2 Active Problem Unspecified essential hypertension 401.9 Active [...] Date End Date Status Dosage Tramadol HCl [facility] [address]-88 50 mg Orally 2 times a day November 19, 2014 2 tablet as needed Results No Known Results Summary Purpose eClinicalWorks Submission
--- OUTSIDE RECORDS SUMMARY | 2017-03-27 14:22 | XMS REPORT ---
Author Author JAZMINE BROWN Organization eClinicalWorks Address Unknown Phone Unavailable Care Team Providers Care Keg Header Name Role Phone JAZMINE BROWN CP Unavailable [...] Date End Date Status Dosage Tramadol HCl [facility] [address]-56 50 MG Orally 2 times a day November 19, 2014 1 tablet as needed Results No Known Results Summary Purpose eClinicalWorks Submission
--- OUTSIDE RECORDS SUMMARY | 2017-03-27 14:22 | XMS REPORT ---
Author Author JAZMINE BROWN Organization eClinicalWorks Address Unknown Phone Unavailable Care Team Providers Care Information Security Manager Name Role Phone JAZMINE BROWN CP Unavailable [...] Date End Date Status Dosage Tramadol HCl [facility] [address]-47 50 mg Orally 2 times a day November 19, 2014 2 tablet as needed Results No Known Results Summary Purpose eClinicalWorks Submission
--- OUTSIDE RECORDS SUMMARY | 2017-03-27 14:22 | XMS REPORT ---
Author Author JAZMINE BROWN Organization eClinicalWorks Address Unknown Phone Unavailable Care Team Providers Care Roller Die Cutting Machine Operator Name Role Phone JAZMINE BROWN CP Unavailable [...] End Date Status Dosage Tramadol HCl [facility] [address]-37 50 MG Orally 2 times a day November 19, 2014 1 tablet as needed Results No Known Results Summary Purpose eClinicalWorks Submission
--- OUTSIDE RECORDS SUMMARY | 2017-03-27 14:22 | XMS REPORT ---
Author Author JAZMINE BROWN Organization eClinicalWorks Address Unknown Phone Unavailable Care Team Providers Care Secondary School Registrar Name Role Phone JAZMINE BROWN CP Unavailable Allergies No Known Allergies Problems Problem Type Condition Code Onset Dates Condition Status Problem Sacroiliitis, not elsewhere classified 720.2 Active Problem Hemorrhage of gastrointestinal tract, unspecified 578.9 Active Problem Atrial fibrillation 427.31 Active Problem Uncomplicated asthma, unspecified asthma severity J45.909 Active Problem Diabetes 250.00 Active Problem Low back pain M54.5 Active Problem Lumbago 724.2 Active Problem Helicobacter pylori (H. pylori) infection 041.86 Active Problem Other malaise and fatigue 780.79 Active Problem Other and unspecified hyperlipidemia 272.4 Active Assessment Low back pain M54.5 Active Problem Unspecified essential hypertension 401.9 Active Problem Unspecified anemia 285.9 Active Medications Medication Code System Code Instructions Start Date End Date Status Dosage Metformin HCl [facility] [address]-81 1000 MG Orally 2 times a day [address] [facility] [address]-94 2.5 MG Orally Once a day Jun 20, 2014 1 tablet Tylenol Extra Strength [facility] [address]-19 500 MG Orally every 6 hrs 1 tablet as needed Lisinopril [facility] [address]-40 40 MG TAKE ONE TABLET BY MOUTH ONCE DAILY Carvedilol [facility] [address]-65 25 MG TAKE ONE TABLET BY MOUTH TWICE DAILY Tramadol HCl [facility] [address]-37 50 mg Orally 2 times a day November 19, 2014 2 tablet as needed Hydrochlorothiazide [facility] [address]-21 25 MG Orally Once a day Apr 05, 2013 1 [address] Vent[address] HFA [facility] [address]-03 108 (90 Base) MCG/ACT Inhalation every 4 hrs September 17, 2015 2 puffs as needed Results No Known Results Summary Purpose eClinicalWorks Submission
--- OUTSIDE RECORDS SUMMARY | 2017-03-27 14:22 | XMS REPORT ---
Author Author JAZMINE BROWN [facility] Address [address] [place] [address] Care Team Providers Care Reel Slitter Name Role Phone JAZMINE BROWN Unavailable PROBLEMS Type Condition ICD9-CM Code FQI67-JD Code Onset Dates Condition Status SNOMED Code Problem Renal mass, right N28.89 Active 960194447 Problem Sciatica of left side M54.32 Active 62861855 Problem Low back pain M54.5 Active 179690651 Problem Uncomplicated asthma, unspecified asthma severity J45.909 Active 282892962 Problem Diabetes E11.9 Active 979705352 Problem Encounter for current long-term use of anticoagulants Z79.01 Active 879391080 ALLERGIES No Information SOCIAL HISTORY Never Assessed PLAN OF CARE VITAL SIGNS MEDICATIONS Medication Instructions Dosage Frequency Start Date End Date Duration Status Hydrocodone-Acetaminophen 7.5-325 MG Orally 2 times a day 1 tablet as needed 12h 13 Aug, 2016 28 days Active RESULTS No Results PROCEDURES No Known procedures IMMUNIZATIONS No Known Immunizations MEDICAL (GENERAL) HISTORY Type Description Date Medical History Eye exam 12/2014 No retinopathy Medical History Diabetes type 2 Medical History hypertension Medical History arthritis Surgical History hysterectomy 1974 Surgical History left knee replacement 2005 Surgical History right knee replacement 2007 Surgical History cholecystectomy 1982 Surgical History cardiac stent x 2 2013 Surgical History vein ligation 1970 Hospitalization History Surgery(s)/Childbirth(s) Hospitalization History upper GI Bleed 2012 Hospitalization History ER visit for Hypoglycemia and stopped coumadin no admission 11/06/15
--- OUTSIDE RECORDS SUMMARY | 2017-03-27 14:22 | XMS REPORT ---
Author Author JAZMINE BROWN Organization eClinicalWorks Address Unknown Phone Unavailable Care Team Providers Care Information And Data Architect Analyst Name Role Phone JAZMINE BROWN CP Unavailable [...] Tramadol HCl [facility] [address]-80 50 MG Orally 2 times a day November 19, 2014 2 tablet as needed Results No Known Results Summary Purpose eClinicalWorks Submission
--- OUTSIDE RECORDS SUMMARY | 2017-03-27 14:23 | XMS REPORT ---
Author Author JAZMINE BROWN Organization eClinicalWorks Address Unknown Phone Unavailable Care Team Providers Care Button Bradder Name Role Phone JAZMINE BROWN CP Unavailable Allergies No Known Allergies Problems Problem Type Condition ICD-9 Code Onset Dates Condition Status Problem Diabetes mellitus without mention of complication, type II or unspecified type, not stated as uncontrolled 250.00 Active Problem Unspecified anemia 285.9 Active Problem Unspecified essential hypertension 401.9 Active Problem Other and unspecified hyperlipidemia 272.4 Active Problem Lumbago 724.2 Active Problem Other malaise and fatigue 780.79 Active Problem Atrial fibrillation 427.31 Active Problem Sacroiliitis, not elsewhere classified 720.2 Active Problem Helicobacter pylori (H. pylori) infection 041.86 Active Problem Hemorrhage of gastrointestinal tract, unspecified 578.9 Active Medications Medication Code System Code Instructions Start Date End Date Status Dosage Tramadol HCl [facility] [address]-41 50 MG Orally 2 times a day RX TO BE FILLED EARLY D/T HOLIDAY November 19, 2014 1 tablet as needed Results No Known Results Summary Purpose eClinicalWorks Submission
--- OUTSIDE RECORDS SUMMARY | 2017-03-27 14:23 | XMS REPORT ---
Author Author JAZMINE BROWN Organization eClinicalWorks Address Unknown Phone Unavailable Care Team Providers Care Bus Company Manager Name Role Phone JAZMINE BROWN CP [...] Date End Date Status Dosage Tramadol HCl [facility] [address]-38 50 mg Orally 2 times a day November 19, 2014 2 tablet as needed Results No Known Results Summary Purpose eClinicalWorks Submission
[2017-03-27 14:32] LABS: BASOPHILS % (AUTO) 1 % (0-10); EOSINOPHILS # (AUTO) 0.2 10^3/uL (0.0-0.3); EOSINOPHILS % (AUTO) 4 % (0-10); LYMPHOCYTES # (AUTO) 1.5 X 10^3 (1.0-4.0); LYMPHOCYTES % (AUTO) 22 % (12-44); MEAN CORPUSCULAR HEMOGLOBIN 32 PG (25-34); MEAN CORPUSCULAR HGB CONC 33 G/DL (32-36); MEAN CORPUSCULAR VOLUME 98 FL (80-99); MEAN PLATELET VOLUME 11.7 FL (7.4-10.4); MONOCYTES # (AUTO) 0.7 X 10^3 (0.0-1.0); MONOCYTES % (AUTO) 11 % (0-12); NEUTROPHILS # (AUTO) 4.1 X 10^3 (1.8-7.8); NEUTROPHILS % (AUTO) 63 % (42-75); PLATELET COUNT 186 10^3/uL (130-400); RED BLOOD COUNT 3.91 10^6/uL (4.35-5.85); RED CELL DISTRIBUTION WIDTH 12.4 % (10.0-14.5); WHITE BLOOD COUNT 6.6 10^3/uL (4.3-11.0)
[2017-03-27 14:40] LABS: ALANINE AMINOTRANSFERASE 12 U/L (0-55); ALBUMIN 3.4 GM/DL (3.2-4.5); ANION GAP 11 MMOL/L (5-14); ASPARTATE AMINO TRANSFERASE 16 U/L (5-34); BILIRUBIN,TOTAL 0.6 MG/DL (0.1-1.0); BLOOD UREA NITROGEN 12 MG/DL (7-18); BUN/CREATININE RATIO 12; CALCIUM 8.5 MG/DL (8.5-10.1); CARBON DIOXIDE 22 MMOL/L (21-32); CHLORIDE 104 MMOL/L (98-107); CREATININE SERUM 1.03 MG/DL (0.60-1.30); GFR ESTIMATED 51; GLUCOSE 208 MG/DL (70-105); POTASSIUM 4.1 MMOL/L (3.6-5.0); SODIUM 137 MMOL/L (135-145); TOTAL PROTEIN 6.8 GM/DL (6.4-8.2)
[2017-03-27 14:45] LABS: TROPONIN I < 0.30 NG/ML (<0.30)
[2017-03-27 14:51] LABS: INR 1.1 (0.8-1.4); PROTHROMBIN TIME PATIENT 14.7 SEC (12.2-14.7)
[2017-03-27] MEDS ORDERED: ASPI-808 PO (14:58)
[2017-03-27] MEDS ORDERED: WARF2.5T82 PO (14:58)
[2017-03-27] MEDS ORDERED: RT-ALBUINH IH (14:59)
[2017-03-27] MEDS ORDERED: LABETALOL HCL 20 MG/4 ML VIAL ONE (15:09)
[2017-03-27] MEDS ORDERED: LABETALOL HCL 20 MG/4 ML VIAL IV ONE ×2 (15:15→15:30)
[2017-03-27 15:27] LABS: BILIRUBIN,URINE NEGATIVE (NEGATIVE); KETONES,URINE NEGATIVE (NEGATIVE); LEUKOCYTE ESTERASE ,URINE NEGATIVE (NEGATIVE); NITRITE,URINE NEGATIVE (NEGATIVE); PH,URINE 7 (5-9); PROTEIN,URINE 2+ (NEGATIVE); UROBILINOGEN,URINE NORMAL (NORMAL)
[2017-03-27] MEDS ORDERED: ALTEPLASE 100 MG/VIAL (ACTIVASE) IV ONE ×2 (15:37→15:39)
[2017-03-27 15:41] LABS: SQUAMOUS EPITHELIAL CELL,UR RARE /HPF
[2017-03-27] MEDS ORDERED: IOHEXOL 350 MG/ML 100 ML (OMNIPAQUE 350) VIAL IV ONE (15:45)
[2017-03-27] MEDS ORDERED: NS 100 ML (IVPB) BAG IV ONE (15:45)
[2017-03-27] MEDS ORDERED: niCARdipine IV 50 MG in NS (IVPB) 230 ML IV SCH (15:45)
[2017-03-27] MEDS ORDERED: fentaNYL INJECTION 100 MCG/2 ML AMP IVP PRN (17:00)
--- NOTE | 2017-03-27 17:01 | Diagnostic Imaging Report ---
INDICATION: Dizziness, blurry vision today before fall. TECHNIQUE: Single view chest 2:13 p.m. CORRELATION STUDY: 12/13/2012. FINDINGS: Heart size is enlarged. There is presence of pulmonary vascular congestion. Findings do appear to be changed from prior study. Bilateral perihilar infiltrates versus edema are present. More peripherally, lung bonilla generally clear. No pneumothorax. No displaced fracture. The right humeral head, however, is slightly inferior in position to the glenoid. IMPRESSION: 1. Findings suggestive of congestive heart failure or pulmonary vascular congestion appearing changed from prior study. Dictated by: Dictated on workstation # [id number]
[2017-03-27] MEDS ORDERED: ONDANSETRON 4 MG/2 ML (SDV) Z0FRAN ONE (17:14)
[2017-03-27] MEDS ORDERED: ONDANSETRON 4 MG/2 ML (SDV) Z0FRAN IVP ONE (17:30)
--- NOTE | 2017-03-27 17:44 | Diagnostic Imaging Report ---
DATE: March 27, 2017. TECHNIQUE: Axial postcontrast CT angiography images of the head were obtained. Coronal and sagittal three-dimensional MIP reformats were provided. Additional postcontrast CT images of the head were also obtained. COMPARISON: CT head without contrast, March 27, 2017. November 06, 2015. FINDINGS: The visualized segments of the right internal carotid artery are patent. There are calcifications of the cavernous segment of the right internal carotid artery. The right middle cerebral artery is patent. The right anterior cerebral artery is patent. The left anterior cerebral artery is patent. The left middle cerebral artery is patent. The visualized segments of the left internal carotid artery are patent. There are calcifications of the cavernous segment of the left internal carotid. The visualized segments of the right and left vertebral arteries are patent. The basilar artery is patent. The right and left posterior inferior cerebellar arteries are patent. The right and left posterior cerebral arteries are patent. There are bilateral posterior communicating arteries. There is no identified high-grade stenosis or vascular occlusion. There is no identified aneurysm. There is no identified venous sinus thrombus. The ventricles and CSF spaces are normal in size and configuration for patient age. There is no abnormal extra-axial fluid collection. There is no evidence of acute intracranial hemorrhage. There is no mass effect or midline shift. There are no areas of abnormal intracranial enhancement. There are areas of low attenuation in the periventricular and subcortical white matter which are not specific but may reflect mild changes of chronic small vessel ischemic disease. There is partial opacification of left posterior ethmoidal air cells. Additional visualized portions of the paranasal sinuses, mastoid air cells and middle ears are well aerated. IMPRESSION: 1. Patent intracranial arterial vasculature without high-grade stenosis, occlusion or aneurysm. 2. No identified acute intracranial abnormality. 3. Mild probable changes of chronic small vessel ischemic disease. Dictated by: Dictated on workstation # [id number]
[2017-03-27] MEDS ORDERED: HYDROmorphone (DILAUDID) 2 MG/ML VIAL IVP ONE (18:15)
[2017-03-27 19:30] VITALS: BP 163/76
--- NOTE | 2017-03-27 19:46 | Diagnostic Imaging Report ---
PROCEDURE: CT cervical spine without contrast. TECHNIQUE: Multiple contiguous axial images were obtained through the cervical spine without the use of intravenous contrast. Sagittal and coronal reformations were then performed. DATE: March 27, 2017. INDICATION: 81-year-old female, fall, neck pain. COMPARISON: None. FINDINGS: There is no identified facet joint subluxation or dislocation. There are multilevel moderate to severe facet degenerative changes of the cervical spine. There is no asymmetric widening of the cervical disc spaces. There is no prominent prevertebral soft tissue swelling. There is prominent chondrocalcinosis adjacent to the C1-C2 articulation with prominent C1-C2 degenerative related changes. There is no pronounced cervical disc height loss. There are multilevel posterior disc osteophyte complexes. CT is limited for assessment of disc pathology as well as non-bony causes of foraminal and spinal stenosis. There are motion limitations of the exam. There is no identified acute fracture of the cervical spine. There are bilateral carotid vascular calcifications. IMPRESSION: 1. No identified acute fracture of the cervical spine or abnormal alignment. 2. Multilevel advanced disc and facet degenerative changes of the cervical spine. Dictated by: Dictated on workstation # [id number]
--- NOTE | 2017-03-27 19:46 | Diagnostic Imaging Report ---
EXAMINATION: Left hip, 2 views. COMPARISON: February 20, 2012. HISTORY: 81-year-old female, left hip pain after fall. FINDINGS: There is severe joint space loss of the left hip with osteophyte formation. The left hip is not dislocated. There is no identified acute fracture. IMPRESSION: 1. No identified acute bony abnormality of the left hip. 2. Severe osteoarthritis of the left hip. Dictated by: Dictated on workstation # [id number]
[2017-03-27 20:00] VITALS: BP 156/73
[2017-03-27] MEDS ORDERED: HYDROmorphone (DILAUDID) 2 MG/ML VIAL IV PRN (20:45)
[2017-03-27] MEDS ORDERED: ONDANSETRON 4 MG/2 ML (SDV) Z0FRAN IV PRN (20:45)
[2017-03-27 21:00] VITALS: BP 144/75
[2017-03-27] MEDS ORDERED: RT-ALBUTEROL/IPRATROPIUM 3 ML (DUONEB) VIAL INH PRN (21:30)
[2017-03-27] MEDS: NS IV 1000 ML 1,000 ML IV SCH (21:54)
[2017-03-27] MEDS: fentaNYL INJECTION 100 MCG/2 ML AMP IV PRN (21:54)
[2017-03-27 22:00] VITALS: BP 125/59
[2017-03-27] MEDS: RT-ALBUTEROL/IPRATROPIUM 3 ML (DUONEB) VIAL INH SCH (22:03)
[2017-03-27 23:00] VITALS: BP 126/75
[2017-03-28] VITALS (24 sets, daily range): BP systolic 123–156; BP diastolic 56–94
[2017-03-28] MEDS: RT-ALBUTEROL/IPRATROPIUM 3 ML (DUONEB) VIAL INH SCH ×6 (02:09→22:13)
[2017-03-28] MEDS: fentaNYL INJECTION 100 MCG/2 ML AMP IV PRN ×2 (02:11→20:49)
[2017-03-28] MEDS ORDERED: NS (IVPB) 250 ML ONE (03:14)
[2017-03-28] MEDS ORDERED: niCARdipine IV FOR DRIP 50 MG KIT ONE (03:15)
[2017-03-28] MEDS: niCARdipine 50 MG/NS 250 ML IV DRIP IV SCH ×6 (03:30→16:26)
[2017-03-28 05:19] LABS: BASOPHILS % (AUTO) 0 % (0-10); EOSINOPHILS # (AUTO) 0.1 10^3/uL (0.0-0.3); EOSINOPHILS % (AUTO) 1 % (0-10); LYMPHOCYTES # (AUTO) 1.6 X 10^3 (1.0-4.0); LYMPHOCYTES % (AUTO) 20 % (12-44); MEAN CORPUSCULAR HEMOGLOBIN 32 PG (25-34); MEAN CORPUSCULAR HGB CONC 33 G/DL (32-36); MEAN CORPUSCULAR VOLUME 98 FL (80-99); MEAN PLATELET VOLUME 10.9 FL (7.4-10.4); MONOCYTES # (AUTO) 0.9 X 10^3 (0.0-1.0); MONOCYTES % (AUTO) 12 % (0-12); NEUTROPHILS # (AUTO) 5.3 X 10^3 (1.8-7.8); NEUTROPHILS % (AUTO) 67 % (42-75); PLATELET COUNT 184 10^3/uL (130-400); RED BLOOD COUNT 3.73 10^6/uL (4.35-5.85); RED CELL DISTRIBUTION WIDTH 12.5 % (10.0-14.5)
[2017-03-28 05:50] LABS: ALBUMIN 3.5 GM/DL (3.2-4.5); BILIRUBIN,TOTAL 0.8 MG/DL (0.1-1.0); CALCIUM 8.8 MG/DL (8.5-10.1); CREATININE SERUM 1.06 MG/DL (0.60-1.30); MAGNESIUM 1.9 MG/DL (1.8-2.4); PHOSPHORUS 3.5 MG/DL (2.3-4.7); POTASSIUM 3.6 MMOL/L (3.6-5.0); TOTAL PROTEIN 6.5 GM/DL (6.4-8.2)
--- NOTE | 2017-03-28 09:39 | History & Physicial (CHS) ---
HPI History of Present Illness: 81yo woman with a history of ischemic stroke, diabetes mellitus type 2, CAD s/p stent, and PAF presented to ER with complaints of left sided weakness. ER physician consulted SARAH who recommended TPA. THis was given in ER. The decision was made to keep her here as she was a poor candidate for an interventional procedure due to her comorbidities. Since the admission, she has not made any significant improvemeaant in her functioing according to her son. Source: family, RN/MD Exam Limitations: clinical condition Date seen by provider: Mar 28, 2017 Time Seen by Provider: 09:30 Attending Physician Yonny Forrest MD PCP Ai Alvarado DO Consult Date of Admission Mar 27, 2017 at 6:10 pm Home Medications Home Medications Reviewed patient Home Medication Reconciliation Form Allergies Coded Allergies: No Known Drug Allergies (Verified , 08/08/07) HTM-[id number] Hx Patient Social History Alcohol Use: Denies Use Recreational Drug Use: No Smoking Status: Never a Smoker Recent Foreign Travel: No Contact w/other who traveled: No Recent Hopitalizations: No Recent Infectious Disease Expo: No Physical Abuse Screen: No Sexual Abuse: No Immunizations Up To Date Date of Pneumonia Vaccine: Aug 10, 2012 Date of Influenza Vaccine: May 05, 2016 Family Medical History Significant Family History: No Pertinent Family Hx Review of Systems ([facility]) Constitutional: no symptoms reported Other uto All Other Systems Reviewed Negative Unless Noted: Yes Reviewed Test Results Reviewed Test Results Lab Laboratory Tests Test 03/27/17 14:00 03/27/17 14:30 03/27/17 15:20 03/28/17 01:00 Range/Units White Blood Count 6.6 4.3-11.0 10^3/uL Red Blood Count 3.91 L 4.35-5.85 10^6/uL Hemoglobin 12.6 11.5-16.0 G/DL Hematocrit 38 35-52 % Mean Corpuscular Volume 98 80-99 FL Mean Corpuscular Hemoglobin 32 25-34 PG Mean Corpuscular Hemoglobin Concent 33 32-36 G/DL Red Cell Distribution Width 12.4 10.0-14.5 % Platelet Count 186 130-400 10^3/uL Mean Platelet Volume 11.7 H 7.4-10.4 FL Neutrophils (%) (Auto) 63 42-75 % Lymphocytes (%) (Auto) 22 12-44 % Monocytes (%) (Auto) 11 0-12 % Eosinophils (%) (Auto) 4 0-10 % Basophils (%) (Auto) 1 0-10 % Neutrophils # (Auto) 4.1 1.8-7.8 X 10^3 Lymphocytes # (Auto) 1.5 1.0-4.0 X 10^3 Monocytes # (Auto) 0.7 0.0-1.0 X 10^3 Eosinophils # (Auto) 0.2 0.0-0.3 10^3/uL Basophils # (Auto) 0.0 0.0-0.1 10^3/uL Prothrombin Time 14.7 12.2-14.7 SEC INR Comment 1.1 0.8-1.4 Activated Partial Thromboplast Time 34 24-35 SEC D-Dimer 1.60 H 0.00-0.49 UG/ML Sodium Level 137 135-145 MMOL/L Potassium Level 4.1 3.6-5.0 MMOL/L Chloride Level 104 98-107 MMOL/L Carbon Dioxide Level 22 21-32 MMOL/L Anion Gap 11 5-14 MMOL/L Blood Urea Nitrogen 12 7-18 MG/DL Creatinine 1.03 0.60-1.30 MG/DL Estimat Glomerular Filtration Rate 51 BUN/Creatinine Ratio 12 Glucose Level 208 H 70-105 MG/DL Calcium Level 8.5 8.5-10.1 MG/DL Total Bilirubin 0.6 0.1-1.0 MG/DL Aspartate Amino Transf (AST/SGOT) 16 5-34 U/L Alanine Aminotransferase (ALT/SGPT) 12 0-55 U/L Alkaline Phosphatase 62 40-136 U/L Troponin I < 0.30 <0.30 NG/ML Total Protein 6.8 6.4-8.2 GM/DL Albumin 3.4 3.2-4.5 GM/DL Glucometer 206 H 180 H 70-110 MG/DL Urine Color YELLOW Urine Clarity CLEAR Urine pH 7 5-9 Urine Specific Cos Cob 1.010 L 1.016-1.022 Urine Protein 2+ H NEGATIVE Urine Glucose (UA) 1+ H NEGATIVE Urine Ketones NEGATIVE NEGATIVE Urine Nitrite NEGATIVE NEGATIVE Urine Bilirubin NEGATIVE NEGATIVE Urine Urobilinogen NORMAL NORMAL MG/DL Urine Leukocyte Esterase NEGATIVE NEGATIVE Urine RBC (Auto) NEGATIVE NEGATIVE Urine RBC NONE /HPF Urine WBC NONE /HPF Urine Squamous Epithelial Cells RARE /HPF Urine Crystals NONE /LPF Urine Bacteria NONE /HPF Urine Casts NONE /LPF Urine Mucus NEGATIVE /LPF Urine Culture Indicated NO Test 03/28/17 05:05 03/28/17 12:45 03/28/17 16:39 03/28/17 20:08 Range/Units White Blood Count 8.0 4.3-11.0 10^3/uL Red Blood Count 3.73 L 4.35-5.85 10^6/uL Hemoglobin 12.1 11.5-16.0 G/DL Hematocrit 36 35-52 % Mean Corpuscular Volume 98 80-99 FL Mean Corpuscular Hemoglobin 32 25-34 PG Mean Corpuscular Hemoglobin Concent 33 32-36 G/DL Red Cell Distribution Width 12.5 10.0-14.5 % Platelet Count 184 130-400 10^3/uL Mean Platelet Volume 10.9 H 7.4-10.4 FL Neutrophils (%) (Auto) 67 42-75 % Lymphocytes (%) (Auto) 20 12-44 % Monocytes (%) (Auto) 12 0-12 % Eosinophils (%) (Auto) 1 0-10 % Basophils (%) (Auto) 0 0-10 % Neutrophils # (Auto) 5.3 1.8-7.8 X 10^3 Lymphocytes # (Auto) 1.6 1.0-4.0 X 10^3 Monocytes # (Auto) 0.9 0.0-1.0 X 10^3 Eosinophils # (Auto) 0.1 0.0-0.3 10^3/uL Basophils # (Auto) 0.0 0.0-0.1 10^3/uL Sodium Level 137 135-145 MMOL/L Potassium Level 3.6 3.6-5.0 MMOL/L Chloride Level 103 98-107 MMOL/L Carbon Dioxide Level 22 21-32 MMOL/L Anion Gap 12 5-14 MMOL/L Blood Urea Nitrogen 13 7-18 MG/DL Creatinine 1.06 0.60-1.30 MG/DL Estimat Glomerular Filtration Rate 50 BUN/Creatinine Ratio 12 Glucose Level 180 H 70-105 MG/DL Calcium Level 8.8 8.5-10.1 MG/DL Phosphorus Level 3.5 2.3-4.7 MG/DL Magnesium Level 1.9 1.8-2.4 MG/DL Total Bilirubin 0.8 0.1-1.0 MG/DL Aspartate Amino Transf (AST/SGOT) 11 5-34 U/L Alanine Aminotransferase (ALT/SGPT) 10 0-55 U/L Alkaline Phosphatase 64 40-136 U/L Total Protein 6.5 6.4-8.2 GM/DL Albumin 3.5 3.2-4.5 GM/DL Glucometer 156 H 138 H 125 H 70-110 MG/DL Test 03/28/17 23:58 03/29/17 04:17 03/29/17 05:01 Range/Units Glucometer 130 H 128 H 70-110 MG/DL White Blood Count 8.5 4.3-11.0 10^3/uL Red Blood Count 3.64 L 4.35-5.85 10^6/uL Hemoglobin 11.8 11.5-16.0 G/DL Hematocrit 36 35-52 % Mean Corpuscular Volume 100 H 80-99 FL Mean Corpuscular Hemoglobin 32 25-34 PG Mean Corpuscular Hemoglobin Concent 33 32-36 G/DL Red Cell Distribution Width 12.8 10.0-14.5 % Platelet Count 191 130-400 10^3/uL Mean Platelet Volume 10.6 H 7.4-10.4 FL Neutrophils (%) (Auto) 73 42-75 % Lymphocytes (%) (Auto) 15 12-44 % Monocytes (%) (Auto) 10 0-12 % Eosinophils (%) (Auto) 2 0-10 % Basophils (%) (Auto) 0 0-10 % Neutrophils # (Auto) 6.2 1.8-7.8 X 10^3 Lymphocytes # (Auto) 1.3 1.0-4.0 X 10^3 Monocytes # (Auto) 0.9 0.0-1.0 X 10^3 Eosinophils # (Auto) 0.2 0.0-0.3 10^3/uL Basophils # (Auto) 0.0 0.0-0.1 10^3/uL Sodium Level 139 135-145 MMOL/L Potassium Level 4.1 3.6-5.0 MMOL/L Chloride Level 106 98-107 MMOL/L Carbon Dioxide Level 23 21-32 MMOL/L Anion Gap 10 5-14 MMOL/L Blood Urea Nitrogen 9 7-18 MG/DL Creatinine 0.96 0.60-1.30 MG/DL Estimat Glomerular Filtration Rate 56 BUN/Creatinine Ratio 9 Glucose Level 151 H 70-105 MG/DL Calcium Level 8.9 8.5-10.1 MG/DL Phosphorus Level 2.9 2.3-4.7 MG/DL Magnesium Level 1.8 1.8-2.4 MG/DL Physical Exam-([facility]) Physical Exam Vital Signs VS - Last 72 Hours, by Label 03/27/17 03/27/17 03/27/17 03/27/17 14:00 16:10 19:00 19:30 Temp 97.8 99.5 Pulse 85 84 90 Resp 16 18 15 B/P (MAP) 206/126 163/76 Pulse Ox 91 96 100 O2 Delivery Nasal Cannula Nasal Cannula Nasal Cannula O2 Flow Rate 2.00 2.00 3.00 03/27/17 03/27/17 03/27/17 03/27/17 19:58 20:00 21:00 22:00 Pulse 78 81 74 75 Resp 16 10 6 B/P (MAP) 156/73 144/75 125/59 Pulse Ox 98 99 100 100 O2 Delivery Nasal Cannula Nasal Cannula Nasal Cannula O2 Flow Rate 3.00 3.00 3.00 03/27/17 03/27/17 03/28/17 03/28/17 22:03 23:00 00:00 01:00 Pulse 72 75 67 Resp 9 11 9 B/P (MAP) 126/75 130/74 131/62 Pulse Ox 98 99 99 98 O2 Delivery Nasal Cannula Nasal Cannula Nasal Cannula Nasal Cannula O2 Flow Rate 3.00 3.00 3.00 3.00 03/28/17 03/28/17 03/28/17 03/28/17 01:00 02:00 02:09 03:00 Pulse 69 77 81 Resp 15 11 B/P (MAP) 156/69 144/68 Pulse Ox 97 97 97 O2 Delivery Nasal Cannula Nasal Cannula Nasal Cannula O2 Flow Rate 3.00 2.00 3.00 03/28/17 03/28/17 03/28/17 03/28/17 04:00 05:00 06:00 06:52 Pulse 77 71 71 Resp 13 14 12 B/P (MAP) 136/70 140/71 144/70 Pulse Ox 96 95 94 94 O2 Delivery Nasal Cannula Nasal Cannula Nasal Cannula Nasal Cannula O2 Flow Rate 3.00 3.00 3.00 2.00 03/28/17 03/28/17 03/28/17 03/28/17 07:00 07:00 08:00 09:00 Temp 98.9 Pulse 78 71 84 74 Resp 18 11 13 B/P (MAP) 146/68 123/62 126/58 Pulse Ox 95 94 95 O2 Delivery Nasal Cannula Nasal Cannula Nasal Cannula O2 Flow Rate 3.00 3.00 03/28/17 03/28/17 03/28/17 03/28/17 10:00 10:50 11:00 11:30 Temp 97.6 Pulse 76 82 81 Resp 14 14 13 B/P (MAP) 127/61 136/60 136/60 Pulse Ox 94 95 96 96 O2 Delivery Nasal Cannula Nasal Cannula Nasal Cannula Nasal Cannula O2 Flow Rate 3.00 2.00 3.00 3.00 03/28/17 03/28/17 03/28/17 03/28/17 13:00 13:00 14:00 14:35 Pulse 91 86 82 Resp 16 15 B/P (MAP) 125/70 142/77 Pulse Ox 94 97 97 O2 Delivery Nasal Cannula Nasal Cannula Nasal Cannula O2 Flow Rate 3.00 3.00 2.00 03/28/17 03/28/17 03/28/17 03/28/17 15:00 16:00 17:00 18:00 Temp 98.0 Pulse 96 99 90 93 Resp 17 18 15 19 B/P (MAP) 144/84 148/94 133/63 135/78 Pulse Ox 96 97 95 93 O2 Delivery Nasal Cannula Nasal Cannula Nasal Cannula Nasal Cannula O2 Flow Rate 3.00 3.00 3.00 3.00 03/28/17 03/28/17 03/28/17 03/28/17 19:00 19:00 19:05 20:00 Pulse 87 106 Resp 18 B/P (MAP) 127/61 Pulse Ox 97 97 94 O2 Delivery Nasal Cannula Nasal Cannula Nasal Cannula O2 Flow Rate 3.00 4.00 3.00 03/28/17 03/28/17 03/28/17 03/28/17 20:00 21:00 22:00 22:13 Temp 98.1 Pulse 108 110 91 Resp 18 15 15 B/P (MAP) 142/63 152/73 126/56 Pulse Ox 94 94 93 93 O2 Delivery Nasal Cannula Nasal Cannula Nasal Cannula Nasal Cannula O2 Flow Rate 3.00 3.00 3.00 4.00 03/28/17 03/29/17 03/29/17 03/29/17 23:00 00:00 00:00 01:00 Temp 100.1 Pulse 95 110 120 Resp 17 18 22 B/P (MAP) 123/56 126/58 139/66 Pulse Ox 93 91 92 95 O2 Delivery Nasal Cannula Nasal Cannula Nasal Cannula Nasal Cannula O2 Flow Rate 3.00 3.00 3.00 3.00 03/29/17 03/29/17 03/29/17 03/29/17 01:00 01:58 02:00 03:00 Pulse 109 96 104 Resp 17 B/P (MAP) 132/80 122/58 Pulse Ox 95 96 97 O2 Delivery Nasal Cannula Nasal Cannula Nasal Cannula O2 Flow Rate 3.00 3.00 3.00 03/29/17 03/29/17 03/29/17 03/29/17 04:00 04:00 05:00 06:00 Temp 97.8 Pulse 106 110 113 Resp 20 B/P (MAP) 133/68 140/80 142/79 Pulse Ox 96 97 90 95 O2 Delivery Nasal Cannula Nasal Cannula Nasal Cannula Nasal Cannula O2 Flow Rate 3.00 3.00 3.00 3.00 03/29/17 03/29/17 03/29/17 03/29/17 06:56 07:00 07:00 08:00 Pulse 90 87 Resp 22 B/P (MAP) 112/66 Pulse Ox 96 99 94 O2 Delivery Nasal Cannula Nasal Cannula Nasal Cannula O2 Flow Rate 3.00 3.00 3.00 03/29/17 03/29/17 03/29/17 03/29/17 08:00 08:00 09:00 10:00 Temp 98.7 Pulse 91 94 91 Resp 15 20 21 B/P (MAP) 118/57 124/67 159/66 Pulse Ox 95 95 95 O2 Delivery Nasal Cannula Nasal Cannula Nasal Cannula Nasal Cannula O2 Flow Rate 3.00 3.00 3.00 3.00 03/29/17 11:00 Pulse 99 Resp 20 B/P (MAP) 155/84 Pulse Ox 94 O2 Delivery Nasal Cannula O2 Flow Rate 3.00 Capillary Refill : Less Than 3 Seconds General Appearance: WD/WN, moderate distress HEENT: PERRL/EOMI, pharynx normal (MMM) Neck: supple, normal inspection Respiratory: lungs clear, normal breath sounds, no respiratory distress, no accessory muscle use Cardiovascular: regular rate, rhythm, no edema, no gallop, no JVD, no murmur Gastrointestinal: normal bowel sounds, non tender, soft, no organomegaly Extremities: normal inspection, no pedal edema, no calf tenderness, normal capillary refill Neurologic/Psychiatric: facial droop (right), other (unable to do full neuro exam as pt is not responsive) Skin: normal color, warm/dry Assessment/Plan Assessment/Plan Plan ISCHEMIC STROKE ADM - Pateint has received TPA. Initial swallowing study failed - holding PO meds. Will keep on Cardene drip for now to keep SBP <160. Family asking if MRI needed. Will see where we go in next 24h as her course could improve or deteriorate as well. Patient is DNR and family does not want aggressive measures done. NIH initially 7, now difficult to arouse so cannot do full NIH assessment. HTN ADM - difficult to tell if this is from the stroke or essential HTN. Will leave on cardene drip while she appears to be aspiration risk. PAF CAD ADM - rate controlled at present; holding PO meds. will consult cardiology if cative chest pain or if afib develops into RV:R. DMT2 ADM - usually on sulfonylurea, will do SSI while in ICU DVT PROPH: SCDs Diagnosis/Problems: Copy Copies To 1: YONNY FIELDS APRN, MD Mar 28, 2017 9:39 am
[2017-03-28] MEDS: POTASSIUM CL 10MEQ/50ML IVPB 50 ML IV SCH (10:00)
[2017-03-28] MEDS: NS IV 1000 ML 1,000 ML IV SCH ×2 (10:01→20:28)
--- NOTE | 2017-03-28 10:06 | Diagnostic Imaging Report ---
INDICATION: Stroke. TECHNIQUE: Single-view chest 5:23 AM. CORRELATION STUDY: 03/27/2017. FINDINGS: Heart size remains enlarged. There is presence of pulmonary vascular congestion, however, the vasculature does appear to be overall diminished and less pronounced from prior study. Prominent interstitial markings noted throughout both lung bonilla. No infiltrate. Likely small effusions. IMPRESSION: Findings of congestive heart failure persist but overall do appear to be somewhat improved and diminished from prior study. Dictated by: Dictated on workstation # [id number]
[2017-03-28] MEDS ORDERED: TRAM50TA2 PO (15:59)
[2017-03-28] MEDS ORDERED: LISI40TA PO (15:59)
[2017-03-28] MEDS ORDERED: CARV25TA PO (15:59)
[2017-03-29] VITALS (12 sets, daily range): BP systolic 112–159; BP diastolic 57–84
[2017-03-29] MEDS: niCARdipine 50 MG/NS 250 ML IV DRIP IV SCH ×2 (00:47)
[2017-03-29] MEDS: RT-ALBUTEROL/IPRATROPIUM 3 ML (DUONEB) VIAL INH SCH ×2 (01:58→06:55)
[2017-03-29 05:10] LABS: BASOPHILS % (AUTO) 0 % (0-10); EOSINOPHILS # (AUTO) 0.2 10^3/uL (0.0-0.3); EOSINOPHILS % (AUTO) 2 % (0-10); LYMPHOCYTES # (AUTO) 1.3 X 10^3 (1.0-4.0); LYMPHOCYTES % (AUTO) 15 % (12-44); MEAN CORPUSCULAR HEMOGLOBIN 32 PG (25-34); MEAN CORPUSCULAR HGB CONC 33 G/DL (32-36); MEAN CORPUSCULAR VOLUME 100 FL (80-99); MEAN PLATELET VOLUME 10.6 FL (7.4-10.4); MONOCYTES # (AUTO) 0.9 X 10^3 (0.0-1.0); MONOCYTES % (AUTO) 10 % (0-12); NEUTROPHILS # (AUTO) 6.2 X 10^3 (1.8-7.8); NEUTROPHILS % (AUTO) 73 % (42-75); PLATELET COUNT 191 10^3/uL (130-400); RED BLOOD COUNT 3.64 10^6/uL (4.35-5.85); RED CELL DISTRIBUTION WIDTH 12.8 % (10.0-14.5); WHITE BLOOD COUNT 8.5 10^3/uL (4.3-11.0)
[2017-03-29 05:29] LABS: CALCIUM 8.9 MG/DL (8.5-10.1); CREATININE SERUM 0.96 MG/DL (0.60-1.30); MAGNESIUM 1.8 MG/DL (1.8-2.4); PHOSPHORUS 2.9 MG/DL (2.3-4.7); POTASSIUM 4.1 MMOL/L (3.6-5.0)
[2017-03-29] MEDS: fentaNYL INJECTION 100 MCG/2 ML AMP IV PRN (05:39)
[2017-03-29] MEDS ORDERED: MAGNESIUM 1 GM/100 ML IVPB 100 ML IV SCH (06:00)
[2017-03-29] MEDS ORDERED: KCL 20 MEQ TAB (K-DUR) PO SCH (06:00)
[2017-03-29] MEDS ORDERED: POTASSIUM CL 10MEQ/50ML IVPB 50 ML IV SCH (06:00)
--- NOTE | 2017-03-29 07:25 | Diagnostic Imaging Report ---
INDICATION: CVA, hypoxia COMPARISON: 03/28/17 FINDINGS: Single view of the chest demonstrate cardiac enlargement with increase in central vascular congestion and pulmonary edema. Small effusions are present. There is no pneumothorax. IMPRESSION: 1. Worsening central vascular congestion and pulmonary edema. 2. Stable small effusions. Dictated by: Dictated on workstation # [id number]
[2017-03-29] MEDS ORDERED: ASPIRIN 81 MG CHEW (CHILDREN'S ASA) PO SCH (09:00)
[2017-03-29] MEDS ORDERED: SALIVA STIMULANT MOUTH SPRAY (BIOTENE) 1.5 OZ MM PRN (10:45)
[2017-03-29] MEDS ORDERED: RT-ALBUTEROL/IPRATROPIUM 3 ML (DUONEB) VIAL INH PRN (10:45)
[2017-03-29] MEDS ORDERED: LORazepam INJ 2 MG/ML (ATIVAN) VIAL IVP PRN (10:45)
[2017-03-29] MEDS ORDERED: ARTIFICIAL TEARS OINT (LACRI-LUBE) 3.5 GM TUBE OU PRN (10:45)
[2017-03-29] MEDS ORDERED: PROMETHAZINE INJ 25 MG/ML (PHENERGAN) AMP IVP PRN (10:45)
[2017-03-29] MEDS ORDERED: ONDANSETRON 4 MG/2 ML (SDV) Z0FRAN IVP PRN (10:45)
[2017-03-29] MEDS ORDERED: ARTIFICAL TEARS 0.4 ML UNIT DOSE (REFRESH PLUS) OU PRN (10:45)
[2017-03-29] MEDS ORDERED: GLYCOPYRROLATE 0.2 MG/ML (ROBINUL) 2 ML VIAL IV PRN (10:45)
--- NOTE | 2017-03-29 10:54 | Discharge Inst-Skilled Nursing ---
Discharge Inst-Skilled NF Patient Instructions Patient Problems: 1. ISCHEMIC STROKE 2. DMT2 Goal: END OF LIFE CARE, COMFORT Patient Instructions: HOSPICE TEAM WILL WRITE FOR APPROPRIATE COMFORT CARE MEASURES AND MEDICATIONS Consult/Follow Up/Orders Follow up appt.: JAZMINE BROWN APRN WILL SEE THE PATIENT DURING HER NEXT USP ROUNDS Skilled NF Admit to: [facility] Certifications SNF I certify that SNF services are required to be given on an inpatient basis because of the above named patient's need for long term care on a continuing basis for the conditions(s) for which he/she was receiving inpatient hospital services prior to his/her transfer to the SNF. [facility] Facility Order: Other (HOSPICE) Discharge Diet: No Restrictions Daily Activity as Tolerated: Yes Discharge Medications Discontinued Medications: Albuterol Sulfate (Proair Hfa) 1 Puff Puff 2 PUFF IH Q4H PRN for SHORTNESS OF BREATH, PUFF 1 PUFF = 90 MCG Aspirin (Aspirin) 325 Mg Tablet 650 MG PO DAILY PRN for PAIN-MILD, TAB TAKES 2 (325 MG) TABLETS Carvedilol (Carvedilol) 25 Mg Tablet 25 MG PO BID Glipizide (Glipizide) 5 Mg Tablet 5 MG PO DAILY, TAB Lisinopril (Lisinopril) 40 Mg Tablet 40 MG PO DAILY Tramadol HCl (Tramadol HCl) 50 Mg Tablet 50 MG PO BID Yonny Forrest Mar 29, 2017 10:51 Copy Copies To 1: YONNY FIELDS APRN, MD Mar 29, 2017 10:54 am
--- NOTE | 2017-03-29 10:54 | Discharge Summary ---
Diagnosis/Chief Complaint Date of Admission Mar 27, 2017 at 6:10 pm Date of Discharge Mar 29, 2017 Admission Diagnosis Admission Diagnosis SEE BELOW Discharge Diagnosis ISCHEMIC STROKE ADM - Pateint has received TPA. Initial swallowing study failed - holding PO meds. Will keep on Cardene drip for now to keep SBP <160. Family asking if MRI needed. Will see where we go in next 24h as her course could improve or deteriorate as well. Patient is DNR and family does not want aggressive measures done. NIH initially 7, now difficult to arouse so cannot do full NIH assessment. HTN ADM - difficult to tell if this is from the stroke or essential HTN. Will leave on cardene drip while she appears to be aspiration risk. PAF CAD ADM - rate controlled at present; holding PO meds. will consult cardiology if cative chest pain or if afib develops into RV:R. DMT2 ADM - usually on sulfonylurea, will do SSI while in ICU DVT PROPH: SCDs DISCHARGE: Patient clinically deteriorated overnight. She is now having sonorous respirations and is difficult to arouse. She cannot take anything by mouth due to unreliability in swallowing, and it will be difficult for her to survive without a PEG tube. Family would like to arrange for hospice in a facility. She had previously told her children that she wanted to in a prison, not in their home or her own. We will arrange that per her request. Trevor Ennis will visit the family. Comfort care orders arranged and other meds will be discontinued. Chief Complaint/HPI Chief Complaint/HPI 81yo woman with a history of ischemic stroke, diabetes mellitus type 2, CAD s/p stent, and PAF presented to ER with complaints of left sided weakness. ER physician consulted SARHA who recommended TPA. THis was given in ER. The decision was made to keep her here as she was a poor candidate for an interventional procedure due to her comorbidities. Since the admission, she has not made any significant improvemeaant in her functioing according to her son. Source: family, RN/MD Exam Limitations: clinical condition Discharge Summary-Simple/Stand Consultations Discharge Physical Examination Allergies: Coded Allergies: No Known Drug Allergies (Verified , 08/08/07) Vitals & I&Os Vital Sign - Last 12Hours Date Time Temp Pulse Resp B/P (MAP) Pulse Ox O2 Delivery O2 Flow Rate FiO2 03/29/17 09:00 94 20 124/67 95 Nasal Cannula 3.00 03/29/17 08:00 98.7 General Appearance: Other (obtunded, responsive to painful stimuli) Respiratory: Other (sonorous and labored) Cardiovascular: Other (irreg irreg) Abdominal: Normal Bowel Sounds, Soft, No Tenderness, No Hepatosplenomegaly, No Masses Extremities: No Clubbing, No Cyanosis, No Edema Neuro: Other (obtunded) Hospital Course See final discharge diagnosis. Discharge Instructions to patient/family Please see electronic discharge instructions given to patient. Discharge Medications Reviewed and agree with Discharge Medication list on patient's Discharge Instruction sheet Copy Copies To 1: YONNY FIELDS APRN, MD Mar 29, 2017 10:54 am
[2017-03-29] MEDS ORDERED: morphine INJ 4 MG/ML 1 ML (VIAL/SYRINGE) IVP PRN (18:00)
== END 2017-03-29 18:40 | disposition hospice, inpatient (51) | DRG 63 ==
LOC: EDUNIT# 13:58 → ER 13:59 → ICU 18:10
PROVIDERS: ADMIT Pediatrics; ATTEND Pediatrics
DX: I63.9 Cerebral infarction, unspecified (principal); R29.708 NIHSS score 8; Z66 Do not resuscitate; I10 Essential (primary) hypertension; I48.91 Unspecified atrial fibrillation; I25.10 Atherosclerotic heart disease of native coronary artery without angina pectoris; E11.9 Type 2 diabetes mellitus without complications; J44.9 Chronic obstructive pulmonary disease, unspecified; Z95.5 Presence of coronary angioplasty implant and graft
CPT/HCPCS: 36415; 51702; 70450; 70496; 71010; 72125; 73502; 80048; 80053; 81000; 82962; 83735; 84100; 84484; 85025; 85379; 85610; 85730; 87081; 92977; 93005; 93041; 94640; 94664; 96365; 96366; 96367; 96375